=== PATIENT | female | born 1970 | race Caucasian/White ===

== ENCOUNTER 2018-07-20 15:59 | Emergency (ER) | payer OTHER, SELFPAY ==
[2018-07-20 16:03] VITALS: BP 133/100; PULSE 105; RESP 20; TEMP 36.8; O2SAT 100; BMI 25.4
--- NOTE | 2018-07-20 18:09 | ED.HA ---
HPI - Headache General Chief Complaint: Headache Stated Complaint: infection,fever,pain and pressure in head Time Seen by Provider: 07/20/18 16:55 Source: patient and family Mode of arrival: ambulatory Limitations: no limitations History of Present Illness HPI Narrative: 47-year-old female, nonsmoker with extensive, chronic medical history presents with ongoing headache for the past 10 days or so. She denies any fever or chills nor has she had any injury or exposure to ill persons. Patient was initially seen at would be and had at therapies for migraine administered including what sounds like Toradol, Reglan and a steroid. She left the emergency department without any lab work feeling much better. She apparently had a CT which was unremarkable and when her symptoms persisted she followed up with her primary care provider who ordered some antibiotics and steroids for presumed sinusitis given her complaint facial discomfort. She states that she feels largely better but is still not back to her baseline and as a result her primary care provider sent her here for a lumbar puncture. She denies any neck pain has no mental status change, feels largely much better and refuses a lumbar puncture even after discussion of risks and benefits. Initially her headache was worse with bright lights and loud noises and now she states her facial discomfort/fullness is worse when she leans forward or moves her head side to side. She denies any purulent drainage or other respiratory complaints such as runny nose, sore throat or cough MD Complaint: headache Onset (ago): day(s) Onset description: gradual Location: diffuse and facial Severity: mild Quality: aching Relieving factors: nothing Exacerbating factors: other Context: occurred at rest Associated symptoms: photophobia and sensitivity to sound Treatments prior to arrival: migraine medication and other (Decadron, Augmentin) Related Data Home Medications Medication Instructions Recorded Confirmed acetaminophen 07/20/18 amoxicillin-pot clavulanate 1 tab PO BID 07/20/18 07/20/18 buspirone 07/20/18 07/20/18 cyclobenzaprine 07/20/18 07/20/18 duloxetine 07/20/18 07/20/18 esomeprazole magnesium 07/20/18 07/20/18 folic acid 07/20/18 07/20/18 gabapentin 07/20/18 07/20/18 ibuprofen 07/20/18 07/20/18 nifedipine 07/20/18 07/20/18 nitroglycerin [Nitro-Bid] 07/20/18 07/20/18 ondansetron 07/20/18 07/20/18 rosuvastatin [Crestor] 1 tab PO DAILY 07/20/18 07/20/18 sildenafil (antihypertensive) 07/20/18 07/20/18 spironolactone 1 tab PO DAILY 07/20/18 07/20/18 tocilizumab [Actemra] 07/20/18 07/20/18 Allergies Allergy/AdvReac Type Severity Reaction Status Date / Time amlodipine Allergy Verified 07/20/18 21:55 Sulfa (Sulfonamide Allergy Verified 07/20/18 21:55 Antibiotics) sumatriptan [From Imitrex] Allergy Verified 07/20/18 21:55 Review of Systems Review of Systems All systems reviewed & are unremarkable except as noted in HPI and below Constitutional Denies chills, Denies fever(s), Reports headache(s), Denies lethargy and Reports weakness Comments: generalized fatiue Eyes Denies change in vision, Denies eye discharge, Denies irritation and Denies loss of vision ENT Ears, Nose, Mouth, and Throat: Denies change in voice, Reports headache(s), Denies neck pain and Denies sore throat Cardiovascular Denies chest pain, Denies irregular heart rhythm, Denies lightheadedness, Denies palpitations, Denies dyspnea, Denies dyspnea on exertion and Denies orthopnea Respiratory Denies cough, Denies dyspnea, Denies dyspnea on exertion and Denies wheezing Gastrointestinal Gastrointestinal: Denies abdominal pain, Denies change in bowel habits, Denies diarrhea, Denies nausea and Denies vomiting Genitourinary Denies hematuria, Denies flank pain, Denies urinary incontinence and Denies urinary urgency Musculoskeletal Denies neck pain Integumentary/Breasts Denies pruritus, Denies erythema, Denies rash and Denies wounds Neurologic Denies confusion, Reports headache(s), Denies loss of vision and Reports weakness Psychiatric Denies anxiety, Denies confusion, Denies depression, Denies homicidal ideation and Denies suicidal ideation Endocrine Denies palpitations Hematologic/Lymphatic Denies easy bruising Allergic/Immunologic Denies wheezing PFSH Medical History CVA (cerebral vascular accident) (Acute) Chronic anemia (Acute) Rheumatoid arthritis (Acute) Sjogren's disease (Acute) Social History Smoking Status: Never smoker Exam Initial Vital Signs Initial Vital Signs: Vital Signs Temperature 98.3 F 07/20/18 16:03 Pulse Rate 105 H 07/20/18 16:03 Respiratory Rate 20 07/20/18 16:03 Blood Pressure 133/100 H 07/20/18 16:03 Pulse Oximetry 100 07/20/18 16:03 Const General: cooperative and well developed Nutritional Appearance: well nourished Orientation: alert, awake, oriented x3 and not confused HENMT Head: normocephalic and atraumatic Ears: external ears normal and TM's normal bilaterally Nose: external nose normal and No nasal discharge Face and sinus: sinuses nontender, face symmetric, no sinus tenderness and No dry mucous membranes Mouth: oral mucosae normal and moist mucous membranes Teeth and gingiva: dentition normal Throat: tonsils normal and uvula midline Eyes General: appearance normal, both eyes and all related structures Eyelids: eyelids normal Conjunctivae: conjunctivae normal Sclera: sclerae normal Pupils: PERRL EOM: EOM intact bilaterally Neck Neck: normal visual inspection, trachea midline, No lymphadenopathy, No midline deformity and No JVD Lymphatic: No lymphedema Chest Chest: normal inspection of the chest Resp Effort & Inspection: normal respiratory effort, able to speak in complete sentences, no respiratory distress and no use of accessory muscles Auscultation: clear to auscultation bilaterally, no rales, no rhonchi and no wheezes Cardio Rate: regular rate Rhythm: regular rhythm Heart Sounds: no click, no gallops, no murmurs and no rubs Pulses: normal peripheral pulses GI Inspection: non-distended Palpation: soft, no hepatosplenomegaly, No guarding, No pulsatile mass and No tender Auscultation: normal bowel sounds Back/Spine/Pelvis Back: No CVA tenderness Cervical Spine: cervical ROM normal and No pain with cervical ROM Thoracic/Lumbar Spine: thoracic and lumbar spine normal to inspection Skin General: no rashes or lesions noted, No jaundice and No petechiae Neuro General: alert, oriented x3, gait normal and no focal motor deficits Speech: speech normal Other: NIH Stroke Scale 1a. LOC: Patient is alert and keenly responsive (0) 1b. LOC Questions: Patient answers both LOC questions accurately (0) 1c. LOC Commands: Patient performs both tasks correctly (0) 2. Best Gaze: Normal (0) 3. Visual: No visual loss (0) 4. Facial palsy: Normal symmetrical movements (0) 5. Motor arm: No drift (0) 6. Motor leg: No drift (0) 7. Limb ataxia: Absent (0) 8. Sensory: Normal (0) 9. Best language: No aphasia; normal (0) 10. Dysarthria: Normal (0) 11. Extinction and inattention: No abnormality (0) NIHSS: 0 Extrem General: full ROM, no clubbing, cyanosis or edema, no pedal edema and no calf tenderness Psych Appearance: well kempt Mental Status: mental status grossly normal Attitude: cooperative Thought Content: normal and suicidality Judgment: judgment good Course Orders Ordered: ED Orders 07/20/18 18:30 MR head/brain wo con Stat Influenza A and B by PCR Rapid Stat 07/20/18 18:56 Basic Metabolic Panel Stat Complete Blood Count AUTO DIFF Stat Procalcitonin Stat Discontinued Medications Dexamethasone (Decadron) 10 mg IV NOW ONE Stop: 07/20/18 18:30 Last Admin: 07/20/18 18:50 Dose: 10 mg Sodium Chloride (Normal Saline 0.9%) 1,000 mls @ 1,000 mls/hr IV BOLUS ONE Stop: 07/20/18 19:28 Last Infusion: 07/20/18 20:12 Dose: 0 mls/hr Admin: 07/20/18 18:50 Dose: 1,000 mls/hr Lorazepam (Ativan) 0.5 mg IV NOW ONE Stop: 07/20/18 21:10 Last Admin: 07/20/18 21:25 Dose: 0.5 mg Metoclopramide HCl (Reglan) 10 mg IV NOW ONE Stop: 07/20/18 18:30 Last Admin: 07/20/18 18:50 Dose: 10 mg Consultations Consultation #1: Dr. Knapp ([facility] [place] [facility]) accepts patient. [facility] called. Images pushed He has returned our call and states no anticoagulation at this point time Time: 21:00 Vital Signs - 8 hr 07/20/18 16:03 07/20/18 20:43 07/20/18 22:02 Temperature 98.3 F Pulse Rate 105 H 95 H 89 Respiratory Rate 20 16 15 Blood Pressure 133/100 H Blood Pressure [Left Arm] 158/89 H 156/87 H Pulse Oximetry 100 100 100 MDM - Headache Medical Records Attestation: I reviewed the patient's medical records. patient has chronic anemia 6.8-7.8 Lab Data Result diagrams: 07/20/18 18:56 07/20/18 18:56 Lab Results 07/20/18 07/20/18 07/20/18 Range/Units 18:56 18:56 18:56 WBC 5.9 (4.5-11.0) X10^3/uL RBC 3.91 L (4.0-5.2) X10^6/uL Hgb 6.8 L* (12.0-16.0) g/dL Hct 24.5 L (36-46) % MCV 62.5 L (80-100) fL MCH 17.3 L (26-34) PG MCHC 27.6 L (30-36) % RDW 19.2 H (11.6-14.8) % Plt Count 259 (150-400) X10^3/uL Neut % (Auto) 65.0 (50-75) % Lymph % (Auto) 25.0 (25-40) % Door % (Auto) 9.2 (3-14) % Eos % (Auto) 0.2 L (2-4) % Baso % (Auto) 0.6 (0-2) % Neut # (Auto) 3900 (6057-1498) /uL RBC Morphology See below Polychromasia 1+ H Hypochromasia 2+ H Anisocytosis 1+ H Microcytosis 2+ H Ovalocytes 1+ H Sodium 141 (137-145) mmol/L Potassium 3.8 (3.4-5.1) mmol/L Chloride 106 (98-107) mmol/L Carbon Dioxide 26 (22-32) mmol/L BUN 12 (7-17) mg/dL Creatinine 1.00 (0.52-1.04) mg/dL Estimated GFR 60.0 (>60) mL/min BUN/Creatinine Ratio 12.0 (6-22) Glucose 96 (70-100) mg/dL Calcium 9.0 (8.4-10.2) mg/dL Procalcitonin < 0.05 (<0.5) ng/mL Imaging Data MRI - head: Radiologist's impression: [address] [address] Magnetic Resonance Report Signed Patient: Terra Smith MMR#: [id number] : 1970Acct:[id number] Age/Sex: 47 / FDate of Service: 07/20/18 Loc: ED Accession Number: [id number] Procedure: MR head/brain wo con Ordering Provider: Cornelio Moore D.O. PROCEDURE: MR HEAD/BRAIN WO CON INDICATIONS: severe MENDOZA, pain and pressure in head TECHNIQUE: Noncontrast axial T1 spin echo, axial T2 fast spin echo, sagittal and axial FLAIR, coronal T2 fast spin echo, axial gradient echo, axial diffusion and ADC through the brain. COMPARISON: None. FINDINGS: Image quality: Excellent. CSF Spaces: Basal cisterns are patent. No extra-axial fluid collections. Ventricles are normal in size and shape. Brain: No intracranial masses or hemorrhage. Mild T2/FLAIR signal elevation and low gradient echo signal spanning 13 mm within the left superior cerebellum is present. Akins/white matter interface is normal. Brainstem appears normal. Diffusion-weighted images demonstrate no acute ischemic insult. No chronic ischemic insults. Elevated T1/FLAIR signal intensity within the sagittal sinus, left transverse and sigmoid sinus, as well as the left superior internal jugular vein is present. Otherwise normal intravascular flow voids are present. Skull and face: Calvarium has normal marrow signal. Orbits appear normal. Sinuses: Right maxillary sinus retention cyst. Sinuses and mastoids are otherwise clear. IMPRESSION: 1. Cerebral venous thrombosis involving the sagittal, left transverse, left sigmoid, and left internal jugular veins. 2. Mild FLAIR signal elevation and low gradient echo signal within the left cerebellar hemisphere, consistent with a small focus of intraparenchymal hemorrhage with surrounding edema. No midline shift. 3. Findings discussed with Dr. Moore on 07.20.18 at 0840 hrs. Dictated by: Mario Shea M.D. on 07/20/2018 at 20:37 Approved by: Mario Shea M.D. on 07/20/2018 at 20:44 Discharge Plan Departure Patient Disposition: [facility] Clinical Impression: Intraparenchymal hemorrhage of brain, Cerebral venous thrombosis Prescriptions: No Action nifedipine 30 mg tablet extended release 24hr RF: 0 acetaminophen 650 mg suppository RF: 0 spironolactone 25 mg tablet 1 tab PO DAILY RF: 0 ondansetron 8 mg tablet,disintegrating RF: 0 esomeprazole magnesium 40 mg capsule,delayed release(DR/EC) RF: 0 ibuprofen 400 mg tablet RF: 0 gabapentin 300 mg capsule RF: 0 nitroglycerin [Nitro-Bid] 2 % ointment RF: 0 folic acid 1 mg tablet RF: 0 amoxicillin-pot clavulanate 875-125 mg tablet 1 tab PO BID RF: 0 buspirone 15 mg tablet RF: 0 cyclobenzaprine 5 mg tablet RF: 0 rosuvastatin [Crestor] 5 mg tablet 1 tab PO DAILY RF: 0 duloxetine 30 mg capsule,delayed release(DR/EC) RF: 0 sildenafil (antihypertensive) 20 mg tablet RF: 0 tocilizumab [Actemra] 162 mg/0.9 mL syringe RF: 0
--- NOTE | 2018-07-20 18:30 | DI.MRI.S_ITS ---
PROCEDURE: MR HEAD/BRAIN WO CON INDICATIONS: severe MENDOZA, pain and pressure in head TECHNIQUE: Noncontrast axial T1 spin echo, axial T2 fast spin echo, sagittal and axial FLAIR, coronal T2 fast spin echo, axial gradient echo, axial diffusion and ADC through the brain. COMPARISON: None. FINDINGS: Image quality: Excellent. CSF Spaces: Basal cisterns are patent. No extra-axial fluid collections. Ventricles are normal in size and shape. Brain: No intracranial masses or hemorrhage. Mild T2/FLAIR signal elevation and low gradient echo signal spanning 13 mm within the left superior cerebellum is present. Akins/white matter interface is normal. Brainstem appears normal. Diffusion-weighted images demonstrate no acute ischemic insult. No chronic ischemic insults. Elevated T1/FLAIR signal intensity within the sagittal sinus, left transverse and sigmoid sinus, as well as the left superior internal jugular vein is present. Otherwise normal intravascular flow voids are present. Skull and face: Calvarium has normal marrow signal. Orbits appear normal. Sinuses: Right maxillary sinus retention cyst. Sinuses and mastoids are otherwise clear. IMPRESSION: 1. Cerebral venous thrombosis involving the sagittal, left transverse, left sigmoid, and left internal jugular veins. 2. Mild FLAIR signal elevation and low gradient echo signal within the left cerebellar hemisphere, consistent with a small focus of intraparenchymal hemorrhage with surrounding edema. No midline shift. 3. Findings discussed with Dr. Moore on 07.20.18 at 0840 hrs. Dictated by: Mario Shea M.D. on 07/20/2018 at 20:37 Approved by: Mario Shea M.D. on 07/20/2018 at 20:44
[2018-07-20] MEDS: METOCLOPRAMIDE 10 MG/2 ML INJ IV (18:50)
[2018-07-20] MEDS: DEXAMETHASONE 10 MG/ML VIAL IV (18:50)
[2018-07-20] MEDS: SODIUM CHLORIDE 0.9% 1,000 ML 1000 ML IV (18:50)
[2018-07-20 19:18] LABS: Add Manual Diff / Slide Review NO; Hematocrit 24.5 % (36-46); Neutrophils Absolute Auto 3900 /uL (3000-5900); Red Blood Cell Count 3.91 X10^6/uL (4.0-5.2); White Blood Cell Count 5.9 X10^3/uL (4.5-11.0)
[2018-07-20 19:23] LABS: Basophils Percent Auto 0.6 % (0-2); Eosinophils Percent Auto 0.2 % (2-4); Mean Corpuscular HGB Conc 27.6 % (30-36); Mean Corpuscular Hemoglobin 17.3 PG (26-34); Mean Corpuscular Volume 62.5 fL (80-100); Monocytes Percent Auto 9.2 % (3-14); Platelet Count 259 X10^3/uL (150-400); Red Cell Distribution Width 19.2 % (11.6-14.8)
[2018-07-20 19:25] LABS: Hemoglobin 6.8 g/dL (12.0-16.0)
[2018-07-20 19:45] LABS: Blood Urea Nitrogen 12 mg/dL (7-17); Carbon Dioxide 26 mmol/L (22-32); Chloride 106 mmol/L (98-107); Glucose 96 mg/dL (70-100); HEMOLYSIS < 15 (0-50); Potassium 3.8 mmol/L (3.4-5.1); Sodium 141 mmol/L (137-145)
[2018-07-20 19:47] LABS: Anisocytosis 1+; Hypochromasia 2+; Microcytosis 2+; Ovalocytes 1+; Polychromasia 1+
[2018-07-20 20:02] LABS: Procalcitonin < 0.05 ng/mL (<0.5)
--- NOTE | 2018-07-20 20:20 | PC.NURSE ---
provider at bedside pt able to pull up multiple lab results since September. Pt states her hemaglobin is chronically low. provider aware no new orders at this time.
[2018-07-20 20:43] VITALS: BP 158/89; PULSE 95; RESP 16; O2SAT 100
[2018-07-20] MEDS: LORazepam 2 MG/ML SYRINGE 0.5 MG IV (21:25)
[2018-07-20 22:02] VITALS: BP 156/87; PULSE 89; RESP 15; O2SAT 100
[2018-07-20 22:16] VITALS: BP 156/87; PULSE 108; RESP 20; TEMP 36.8; O2SAT 97
== END 2018-07-20 22:17 | disposition short-term general hospital (02) ==
PROVIDERS: Emergency Provider Emergency Medicine
DX: I61.9 Nontraumatic intracerebral hemorrhage, unspecified (principal); G08 Intracranial and intraspinal phlebitis and thrombophlebitis
CPT/HCPCS: 36591; 70551; 80048; 84145; 85025; 96361; 96374; 96375; 99283; 99285; J1100; J2060; J2765

== ENCOUNTER 2020-02-22 12:44 | Emergency (ER) | payer OTHER, SELFPAY ==
[2020-02-22] VITALS (8 sets, daily range): BP systolic 139–194; BP diastolic 81–118; PULSE 79–118; RESP 16–21; TEMP 37.4; O2SAT 97–100; BMI 28.3
--- NOTE | 2020-02-22 12:59 | ED_ITS ---
HPI - Neuro Symptoms/Deficit General Chief Complaint: Neuro Symptoms/Deficit Stated Complaint: Hx of blood clots and strokes, lot of head pain Time Seen by Provider: 02/22/20 12:47 Source: patient Mode of arrival: Ambulatory Limitations: no limitations History of Present Illness HPI Narrative: 49-year-old female here for evaluation of approximately 10 days of a left-sided posterior headache. She states that feels very similar to when she was diagnosed with a ?blood clot? in her brain. 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 Most recent 1 approximately 1.5 years ago. She is not currently on any anticoagulation. She states that she should be on anticoagulation but does not take it because ?I am too overwhelmed ?with the rest of her medical issues. Has not tried anything for symptoms prior to arrival Related Data Home Medications Medication Instructions Recorded Confirmed acetaminophen 07/20/18 amoxicillin-pot clavulanate 1 tab PO BID 07/20/18 07/20/18 buspirone 07/20/18 07/20/18 cyclobenzaprine 07/20/18 07/20/18 duloxetine 07/20/18 07/20/18 esomeprazole magnesium 07/20/18 07/20/18 folic acid 07/20/18 07/20/18 gabapentin 07/20/18 07/20/18 ibuprofen 07/20/18 07/20/18 nifedipine 07/20/18 07/20/18 nitroglycerin [Nitro-Bid] 07/20/18 07/20/18 ondansetron 07/20/18 07/20/18 rosuvastatin [Crestor] 1 tab PO DAILY 07/20/18 07/20/18 sildenafil (pulm.hypertension) 07/20/18 07/20/18 spironolactone 1 tab PO DAILY 07/20/18 07/20/18 tocilizumab [Actemra] 07/20/18 07/20/18 Allergies Allergy/AdvReac Type Severity Reaction Status Date / Time amlodipine Allergy Verified 02/22/20 12:57 Sulfa (Sulfonamide Allergy Verified 02/22/20 12:57 Antibiotics) sumatriptan [From Imitrex] Allergy Verified 02/22/20 12:57 Review of Systems Constitutional Constitutional: Denies fever(s) and Reports headache(s) Eyes Eyes: Reports photophobia ENT Ears, Nose, Mouth, and Throat: Denies vertigo, Denies dizziness, Reports hea dache(s), Denies neck mass and Denies sore throat Cardiovascular Cardiovascular: Denies chest pain and Denies dyspnea Respiratory Respiratory: Denies dyspnea Gastrointestinal Gastrointestinal: Denies abdominal pain, Denies nausea and Denies vomiting Genitourinary Genitourinary: Denies dysuria Musculoskeletal Musculoskeletal: Denies myalgias and Denies arthralgias Integumentary/Breasts Skin/Breast: Denies lesions and Denies rash Neurologic Neurologic: Denies behavioral changes, Denies vertigo, Denies dizziness and Reports headache(s) Psychiatric Psychiatric: Denies behavioral changes Hematologic/Lymphatic Hematologic/Lymphatic: Denies easy bleeding and Denies easy bruising Patient History Medical History Chronic anemia (Acute) CVA (cerebral vascular accident) (Acute) Rheumatoid arthritis (Acute) Sjogren's disease (Acute) Social History Smoking Status: Never smoker Smoking Status: Never smoker Substance Use Type: does not use Exam Initial Vital Signs Initial Vital Signs: Vital Signs Temperature 99.3 F 02/22/20 12:53 Pulse Rate 118 H 02/22/20 12:53 Respiratory Rate 18 02/22/20 12:53 Blood Pressure 192/118 H 02/22/20 12:53 Pulse Oximetry 100 02/22/20 12:53 Const General: cooperative, healthy appearing, comfortable, well developed and well groomed Limitations: mental status not altered [facility] Head: normal to inspection and normocephalic Face and sinus: normal facial exam Mouth: oral mucosae normal Eyes Pupils: PERRL EOM: EOM intact bilaterally Resp Effort & Inspection: normal respiratory effort Auscultation: clear to auscultation bilaterally Cardio Rate: regular rate Rhythm: regular rhythm GI Inspection: non-distended Palpation: soft, No firm and No tender Skin Lesions: no lesions Rashes: no rashes Neuro General: alert, awake and oriented x3 Cranial Nerves: CN's II-XI intact bilaterally Cognition: normal cognition Speech: speech normal Motor: muscle tone normal throughout Sensory Exam: no sensory deficits noted Extrem General: normal to inspection and capillary refill normal Psych Appearance: grossly normal and well kempt Scores [employer] coma scale eye opening: Spontaneous [employer] coma scale verbal response: Orientated [employer] coma scale motor response: Obey commands [employer] coma scale total score: 15 Course Orders Ordered: ED Orders 02/22/20 12:58 EKG-12 Lead Stat 02/22/20 13:01 Complete Blood Count AUTO DIFF Stat Comprehensive Metabolic Panel Stat Lipase Stat Partial Thromboplastin Time Stat Prothrombin Time INR Stat 02/22/20 13:46 CT head/brain wo con Stat 02/22/20 13:57 MR stroke Stat Discontinued Medications Acetaminophen (Tylenol) 975 mg PO NOW ONE Stop: 02/22/20 16:40 Last Admin: 02/22/20 17:43 Dose: 975 mg Documented by: DIEGO Diphenhydramine HCl (Benadryl) 25 mg IV NOW ONE Stop: 02/22/20 16:49 Last Admin: 02/22/20 17:43 Dose: 25 mg Documented by: DIEGO Ketorolac Tromethamine (Toradol) 30 mg IV NOW ONE Stop: 02/22/20 16:49 Last Admin: 02/22/20 17:43 Dose: 30 mg Documented by: DIEGO Metoclopramide HCl (Reglan) 10 mg IV NOW ONE Stop: 02/22/20 16:49 Last Admin: 02/22/20 17:43 Dose: 10 mg Documented by: DIEGO Vital Signs Vital signs: Vital Signs - 8 hr 02/22/20 12:53 02/22/20 14:11 02/22/20 15:11 Temperature 99.3 F Pulse Rate 118 H 98 H 99 H Respiratory Rate 18 18 20 Blood Pressure 192/118 H Blood Pressure [Left Arm] 161/100 H 158/113 H Pulse Oximetry 100 99 97 02/22/20 16:00 02/22/20 16:30 02/22/20 17:00 Temperature Pulse Rate 96 H 102 H 99 H Respiratory Rate 16 18 21 Blood Pressure Blood Pressure [Left Arm] 140/81 194/98 H 165/85 H Pulse Oximetry 100 98 98 02/22/20 17:30 02/22/20 18:09 Temperature Pulse Rate 95 H 79 Respiratory Rate 21 Blood Pressure 139/87 Blood Pressure [Left Arm] 158/84 H Pulse Oximetry 98 99 MDM - Neuro Symptoms/Deficit Lab Data Attestation: I reviewed the patient's lab results. Result diagrams: 02/22/20 13:01 02/22/20 13:01 Labs: Lab Results 02/22/20 02/22/20 02/22/20 Range/Units 13:01 13: 13:01 WBC 9.1 (4.5-11.0) X10^3/uL RBC 4.69 (4.0-5.2) X10^6/uL Hgb 14.2 (12.0-16.0) g/dL Hct 42.2 (36-46) % MCV 90.0 (80-100) fL MCH 30.2 (26-34) PG MCHC 33.6 (30-36) % RDW 14.8 (11.6-14.8) % Plt Count 343 (150-400) X10^3/uL Neut % (Auto) 88.7 H (50-75) % Lymph % (Auto) 6.3 L (25-40) % Callahan % (Auto) 4.3 (3-14) % Eos % (Auto) 0.1 L (2-4) % Baso % (Auto) 0.6 (0-2) % Neut # (Auto) 8100 H (8111-7631) /uL Lymph # (Auto) 600 L (9940-9719) /uL Callahan # (Auto) 400 (0-900) /uL Eos # (Auto) 0 (0-450) /uL Baso # (Auto) 100 (0-100) /uL PT 12.2 (10.1-12.7) SECONDS INR 1.1 (0.9-1.3) APTT 44 H (26.4-36.2) SECONDS Sodium 137 (137-145) mmol/L Potassium 4.1 (3.4-5.1) mmol/L Chloride 104 (98-107) mmol/L Carbon Dioxide 25 (22-32) mmol/L BUN 17 (7-17) mg/dL Creatinine 0.97 (0.52-1.04) mg/dL Estimated GFR > 60.0 (>60) mL/min BUN/Creatinine Ratio 17.5 (6-22) Glucose 123 H (70-100) mg/dL Calcium 9.5 (8.4-10.2) mg/dL Total Bilirubin 0.3 (0.2-1.3) mg/dL AST 28 (14-36) IU/L ALT 40 H (<35) IU/L Alkaline Phosphatase 94 (38-126) U/L Total Protein 8.6 H (6.3-8.2) g/dL Albumin 4.3 (3.5-5.0) g/dL Globulin 4.3 H (1.7-4.1) g/dL Albumin/Globulin Ratio 1.0 (1.0-2.8) Lipase 233 (23-300) U/L Imaging Data CT scan - head: Radiologist's Impression: [address] [address] [address] Scan Report Signed Patient: Terra Smith MMR#: [id number] : 1970Acct:[id number] Age/Sex: 49 / FDate of Service: 02/22/20 Loc: ED Accession Number: [id number] Procedure: CT head/brain wo con Ordering Provider: Freddy Draper D.O. PROCEDURE: CT HEAD/BRAIN WO CON INDICATIONS: History of ICH, with current headache TECHNIQUE: Noncontrast 4.5 mm thick angled axial sections acquired from the foramen magnum to the vertex, with coronal and sagittal reformats. For radiation dose reduction, the following was used: automated exposure control, adjustment of mA and/or kV according to patient size. COMPARISON: None. FINDINGS: Image quality: Excellent. CSF spaces: Basal cisterns are patent. No extra-axial fluid collections. Ventricles are normal in size and shape. Brain: No midline shift. No intracranial masses or hemorrhage. Akins-white matter interface is normal. Mild generalized volume loss with a bifrontal predominanc e, questionably greater than expected for patient age. Skull and face: Calvarium and visualized facial bones are intact, without suspicious lesions. Sinuses: Visualized sinuses and mastoids are clear. IMPRESSION: 1. Mild diffuse volume loss, questionably greater than expected for patient age. 2. Otherwise unremarkable head CT. No evidence of acute stroke, hemorrhage, or mass. Dictated by: Ned Gtz M.D. on 02/22/2020 at 13:48 Approved by: Ned Gtz M.D. on 02/22/2020 at 13:51 MRI: Radiologist's Impression: [address] [address] Magnetic Resonance Report Signed Patient: Terra Smith [facility]#: [id number] : 1970Acct:[id number] Age/Sex: 49 / FDate of Service: 02/22/20 Loc: ED Accession Number: [id number] Procedure: MR stroke Ordering Provider: Freddy Draper D.O. PROCEDURE: MR STROKE Pre- and post-contrast brain MRI, non-contrast brain MR angiogram, pre- and postcontrast neck MR angiogram INDICATIONS: Hx of ICH and venous thrombosis TECHNIQUE: Brain: Noncontrast axial T1 spin echo, axial T2 fast spin echo, sagittal and axial FLAIR, coronal T2 fast spin echo, axial gradient echo, axial diffusion and ADC through the brain. After the administration of contrast, axial 3D VIBE of the cranial vasculature and brain. Brain MRA: Non-contrast 3-D time of flight MR angiogram, with multiple waoronv-kmldeyboy-ixbaqhlkwy (MIP) reformats performed. Neck MRA: Axial and sagittal TruFISP through the neck. Coronal dynamic MR angiogram during administration of contrast in the arterial and venous phases, with 3-dimenstional lcqbjxl-khksgcbgm-pojatamhdh (MIP) reformats constructed from subtraction images. COMPARISON: [facility], MR, MR HEAD/BRAIN WO CON, 07/20/2018, 19:47. [facility], CT, CT HEAD/BRAIN WO CON, 02/22/2020, 13:13. FINDINGS: Image quality: Excellent. BRAIN: CSF spaces: Ventricles are normal in size and shape. Basal cisterns are patent. No extra-axial fluid collections. Brain: No intracranial bleeds or mass effects. Akins-white matter interface is normal. Very minimal tiny foci of increased T2 signal noted in deep white matter structures, within normal limits for patient age. Diffusion weighted images show no acute ischemic insults. Brainstem appears normal. Normal intravascular flow voids are present. No abnormal intracranial enhancement. Previously, in 2018 study, there was extensive acute venous sinus thrombosis. There is minimal residual nonocclusive thrombus focally in the superior sagittal sinus. There may be mild residual or recurrent thrombus present in the left sigmoid sinus. No occlusive venous sinus thrombus is identified. Interestingly, no hemosiderin deposition is identified. Skull and face: Calvarial marrow signal is normal. Orbits appear normal. Sinuses: Sinuses and mastoids are clear. BRAIN MR ANGIOGRAM: Anterior circulation: Intracranial internal carotid arteries are normal in size and enhancement. Normal variant anatomy in which there is atresia of the A1 segment of the right anterior cerebral artery. The flow within the paired anterior cerebral arteries is normal and symmetric. The flow within the middle cerebral arteries is normal and symmetric. The anterior communicating artery is seen. No stenoses, occlusions, or aneurysms. Posterior circulation: The visualized portions of the vertebral arteries demonstrate normal caliber, and join to form a normal appearing basilar artery. The flow within the posterior cerebral arteries is normal and symmetric. No stenoses, occlusions, or aneurysms. NECK MR ANGIOGRAM: Carotids: Great vessels demonstrate a bovine arch anatomy as they arise from the aortic arch. The origins of the common carotid arteries appear patent. The calibers and courses of both common carotid arteries are normal. The bifurcation regions appear normal bilaterally. The internal carotid arteries demonstrate normal course and caliber. Posterior circulation: The origins of the vertebral arteries appear patent. More superior portions of both vertebral arteries demonstrate normal course and caliber, and join to form a normal appearing basilar artery. Miscellaneous: Subclavian arteries appear patent. Pre-contrast images through the neck show no soft tissue abnormalities. IMPRESSION: BRAIN MRI: 1. No evidence of acute stroke, hemorrhage, or mass. Normal appearing brain parenchyma for patient age. No evidence of hemosiderin deposition. 2. Very mild residual or recurrent nonocclusive venous sinus thrombosis, involving the superior sagittal sinus and possibly the left sigmoid sinus. BRAIN MR ANGIOGRAM: There is focused on the arterial tree. No stenosis, occlusio n, aneurysm, or filling defect. NECK MR ANGIOGRAM: Unremarkable Dictated by: Ned Gtz M.D. on 02/22/2020 at 16:26 Approved by: Ned Gtz M.D. on 02/22/2020 at 16:39 ECG Data Attestation: I personally reviewed and interpreted this ECG as follows: Prior ECG tracings: not available for review Interpretation: Sinus tachycardia Ventricular rate 109 Normal axis Normal QRS Normal QTC No ST T wave changes MDM Narrative Medical decision making narrative: Afebrile. Low suspicion for meningitis. CT of the head unremarkable. MRI of the head shows no acute findings. Low suspicion for CVA. Low suspicion for TIA. Low suspicion for intracranial hemorrhage. Low suspicion for tumor. Patient reported improvement of her symptoms after medications. Had a long discussion with her stating that she should talk with her primary doctor about whether not she should be taking the Lovenox given her history of cerebral thrombosis. Patient was given return precautions and follow-up instructions. She expressed understanding and agreement. Discharge Plan Departure Patient Disposition: Home Clinical Impression: Headache Qualifiers: Headache type: unspecified Headache chronicity pattern: unspecified pattern Intractability: not intractable Qualified Code(s): R51 - Headache Discharge Date/Time: 02/22/20 18:10 Instructions: DI for Headache Activity Restrictions/Additional Instructions: Continue all of your medications as directed. Contact your primary provider for follow-up. Return to the emergency department for any new or worsening symptoms Prescriptions: No Action nifedipine 30 mg tablet extended release 24hr RF: 0 acetaminophen 650 mg suppository RF: 0 spironolactone 25 mg tablet 1 tab PO DAILY RF: 0 ondansetron 8 mg tablet,disintegrating RF: 0 esomeprazole magnesium 40 mg capsule,delayed release(DR/EC) RF: 0 ibuprofen 400 mg tablet RF: 0 gabapentin 300 mg capsule RF: 0 nitroglycerin [Nitro-Bid] 2 % ointment RF: 0 folic acid 1 mg tablet RF: 0 amoxicillin-pot clavulanate 875-125 mg tablet 1 tab PO BID RF: 0 buspirone 15 mg tablet RF: 0 cyclobenzaprine 5 mg tablet RF: 0 rosuvastatin [Crestor] 5 mg tablet 1 tab PO DAILY RF: 0 duloxetine 30 mg capsule,delayed release(DR/EC) RF: 0 sildenafil (pulm.hypertension) 20 mg tablet RF: 0 tocilizumab [Actemra] 162 mg/0.9 mL syringe RF: 0 Referrals: Tatiana Tomas [Primary Care Provider] -
[2020-02-22 13:09] LABS: Add Manual Diff / Slide Review NO; Basophils Absolute Auto 100 /uL (0-100); Basophils Percent Auto 0.6 % (0-2); Eosinophils Absolute Auto 0 /uL (0-450); Eosinophils Percent Auto 0.1 % (2-4); Hematocrit 42.2 % (36-46); Hemoglobin 14.2 g/dL (12.0-16.0); Lymphocytes Absolute Auto 600 /uL (1100-4500); Lymphocytes Percent Auto 6.3 % (25-40); Mean Corpuscular HGB Conc 33.6 % (30-36); Mean Corpuscular Hemoglobin 30.2 PG (26-34); Monocytes Absolute Auto 400 /uL (0-900); Monocytes Percent Auto 4.3 % (3-14); Neutrophils Absolute Auto 8100 /uL (1500-7000); Neutrophils Percent Auto 88.7 % (50-75); Platelet Count 343 X10^3/uL (150-400); Red Blood Cell Count 4.69 X10^6/uL (4.0-5.2); Red Cell Distribution Width 14.8 % (11.6-14.8); White Blood Cell Count 9.1 X10^3/uL (4.5-11.0)
[2020-02-22 13:18] LABS: INR 1.1 (0.9-1.3); Prothrombin Time 12.2 SECONDS (10.1-12.7)
[2020-02-22 13:20] LABS: PTT Partial Thromboplastin Tim 44 SECONDS (26.4-36.2)
[2020-02-22 13:23] LABS: Alanine Aminotransferase 40 IU/L (<35); Albumin 4.3 g/dL (3.5-5.0); Alkaline Phosphatase 94 U/L (38-126); Aspartate Aminotransferase 28 IU/L (14-36); BUN Creatinine Ratio 17.5 (6-22); Bilirubin Total 0.3 mg/dL (0.2-1.3); Blood Urea Nitrogen 17 mg/dL (7-17); Calcium 9.5 mg/dL (8.4-10.2); Carbon Dioxide 25 mmol/L (22-32); Chloride 104 mmol/L (98-107); Estimated Glomerular Filt Rate > 60.0 mL/min (>60); Globulin 4.3 g/dL (1.7-4.1); Glucose 123 mg/dL (70-100); HEMOLYSIS < 15 (0-50); Lipase 233 U/L (23-300); Potassium 4.1 mmol/L (3.4-5.1); Sodium 137 mmol/L (137-145); Total Protein 8.6 g/dL (6.3-8.2)
--- NOTE | 2020-02-22 13:46 | DI.CT.S_ITS ---
PROCEDURE: CT HEAD/BRAIN WO CON INDICATIONS: History of ICH, with current headache TECHNIQUE: Noncontrast 4.5 mm thick angled axial sections acquired from the foramen magnum to the vertex, with coronal and sagittal reformats. For radiation dose reduction, the following was used: automated exposure control, adjustment of mA and/or kV according to patient size. COMPARISON: None. FINDINGS: Image quality: Excellent. CSF spaces: Basal cisterns are patent. No extra-axial fluid collections. Ventricles are normal in size and shape. Brain: No midline shift. No intracranial masses or hemorrhage. Akins-white matter interface is normal. Mild generalized volume loss with a bifrontal predominance, questionably greater than expected for patient age. Skull and face: Calvarium and visualized facial bones are intact, without suspicious lesions. Sinuses: Visualized sinuses and mastoids are clear. IMPRESSION: 1. Mild diffuse volume loss, questionably greater than expected for patient age. 2. Otherwise unremarkable head CT. No evidence of acute stroke, hemorrhage, or mass. Dictated by: Ned Gtz M.D. on 02/22/2020 at 13:48 Approved by: Ned Gtz M.D. on 02/22/2020 at 13:51
--- NOTE | 2020-02-22 13:57 | DI.MRI.S_ITS ---
PROCEDURE: MR STROKE Pre- and post-contrast brain MRI, non-contrast brain MR angiogram, pre- and postcontrast neck MR angiogram INDICATIONS: Hx of ICH and venous thrombosis TECHNIQUE: Brain: Noncontrast axial T1 spin echo, axial T2 fast spin echo, sagittal and axial FLAIR, coronal T2 fast spin echo, axial gradient echo, axial diffusion and ADC through the brain. After the administration of contrast, axial 3D VIBE of the cranial vasculature and brain. Brain MRA: Non-contrast 3-D time of flight MR angiogram, with multiple jdkhxmz-blhbaphho-lkduvqlnmp (MIP) reformats performed. Neck MRA: Axial and sagittal TruFISP through the neck. Coronal dynamic MR angiogram during administration of contrast in the arterial and venous phases, with 3-dimenstional vtcarkl-hafueaovx-jkvwldhzdz (MIP) reformats constructed from subtraction images. COMPARISON: [facility], MR, MR HEAD/BRAIN WO CON, 07/20/2018, 19:47. [facility], CT, CT HEAD/BRAIN WO CON, 02/22/2020, 13:13. FINDINGS: Image quality: Excellent. BRAIN: CSF spaces: Ventricles are normal in size and shape. Basal cisterns are patent. No extra-axial fluid collections. Brain: No intracranial bleeds or mass effects. Akins-white matter interface is normal. Very minimal tiny foci of increased T2 signal noted in deep white matter structures, within normal limits for patient age. Diffusion weighted images show no acute ischemic insults. Brainstem appears normal. Normal intravascular flow voids are present. No abnormal intracranial enhancement. Previously, in 2018 study, there was extensive acute venous sinus thrombosis. There is minimal residual nonocclusive thrombus focally in the superior sagittal sinus. There may be mild residual or recurrent thrombus present in the left sigmoid sinus. No occlusive venous sinus thrombus is identified. Interestingly, no hemosiderin deposition is identified. Skull and face: Calvarial marrow signal is normal. Orbits appear normal. Sinuses: Sinuses and mastoids are clear. BRAIN MR ANGIOGRAM: Anterior circulation: Intracranial internal carotid arteries are normal in size and enhancement. Normal variant anatomy in which there is atresia of the A1 segment of the right anterior cerebral artery. The flow within the paired anterior cerebral arteries is normal and symmetric. The flow within the middle cerebral arteries is normal and symmetric. The anterior communicating artery is seen. No stenoses, occlusions, or aneurysms. Posterior circulation: The visualized portions of the vertebral arteries demonstrate normal caliber, and join to form a normal appearing basilar artery. The flow within the posterior cerebral arteries is normal and symmetric. No stenoses, occlusions, or aneurysms. NECK MR ANGIOGRAM: Carotids: Great vessels demonstrate a bovine arch anatomy as they arise from the aortic arch. The origins of the common carotid arteries appear patent. The calibers and courses of both common carotid arteries are normal. The bifurcation regions appear normal bilaterally. The internal carotid arteries demonstrate normal course and caliber. Posterior circulation: The origins of the vertebral arteries appear patent. More superior portions of both vertebral arteries demonstrate normal course and caliber, and join to form a normal appearing basilar artery. Miscellaneous: Subclavian arteries appear patent. Pre-contrast images through the neck show no soft tissue abnormalities. IMPRESSION: BRAIN MRI: 1. No evidence of acute stroke, hemorrhage, or mass. Normal appearing brain parenchyma for patient age. No evidence of hemosiderin deposition. 2. Very mild residual or recurrent nonocclusive venous sinus thrombosis, involving the superior sagittal sinus and possibly the left sigmoid sinus. BRAIN MR ANGIOGRAM: There is focused on the arterial tree. No stenosis, occlusion, aneurysm, or filling defect. NECK MR ANGIOGRAM: Unremarkable Dictated by: Ned Gtz M.D. on 02/22/2020 at 16:26 Approved by: Ned Gtz M.D. on 02/22/2020 at 16:39
[2020-02-22] MEDS: METOCLOPRAMIDE 10 MG/2 ML INJ IV (17:43)
[2020-02-22] MEDS: ACETAMINOPHEN 325 MG TABLET 975 MG PO (17:43)
[2020-02-22] MEDS: KETOROLAC 60 MG/2 ML VIAL 30 MG IV (17:43)
[2020-02-22] MEDS: diphenhydrAMINE 50 MG/ML VIAL 25 MG IV (17:43)
== END 2020-02-22 18:10 | disposition home or self-care (01) ==
PROVIDERS: Emergency Provider Emergency Medicine; PCP Internal Medicine
DX: R51 Headache (principal); Z86.718 Personal history of other venous thrombosis and embolism; R07.9 Chest pain, unspecified
CPT/HCPCS: 36415; 70450; 70548; 70553; 80053; 83690; 85025; 85610; 85730; 93005; 96374; 96375; 99285; A9579; J1200; J1885; J2765

== ENCOUNTER 2021-08-05 15:54 | Emergency (ER) | payer OTHER, SELFPAY ==
[2021-08-05 15:57] VITALS: BP 143/99; PULSE 95; RESP 14; TEMP 36.7; O2SAT 97; BMI 30.1
--- NOTE | 2021-08-05 17:02 | PC.NURSE ---
Pt is having R eye pain and loss of vision since 10pm last night. Assisted PA with tonometer for eye pressures which were elevated at 28 in the R eye and 25 in L eye. Bedside US was obtained to r/o retinal detachment and vitreous hemorrhage. pt tolerated all procedures well. awaiting further orders.
[2021-08-05] MEDS: FLUORESCEIN 1 MG STRIP EYE-BOTH (17:09)
[2021-08-05] MEDS: PROPARACAINE 0.5% OPHTH SOL 1 DROPS EYE-BOTH (17:10)
--- NOTE | 2021-08-05 17:26 | ED_ITS ---
HPI - Eye Problem <Josette Skaggs PA-C - Last Filed: 08/05/21 19:21> General Chief complaint: Eye Problems Stated complaint: unable to see out of right eye Time Seen by Provider: 08/05/21 16:09 Source: patient Mode of arrival: Ambulatory Limitations: no limitations History of Present Illness HPI Narrative: 50-year-old female with no reported past medical history presents to the ED with 2 days of right eye vision deficits, flashing lights, eye pain. Patient states that her symptoms started last night at 10:00 p.m. with flashes of light in her right eye, along with some blurry vision and right eye pain. This morning patient reports that she continue to have right-sided eye pain, along with photophobia as well as worsening vision in the right eye. Patient describes the vision in her right eye as a circular area of black in the middle. Patient endorses a slight headache. Patient denies any trauma to the eye or head or face. Patient denies fever, chills, nasal congestion, chest pain, shortness of breath, cough, nausea, vomiting, lightheadedness, dizziness, syncope. Patient denies contact lens use. Patient uses glasses for reading. Related Data Home Medications Medication Instructions Recorded Confirmed acetaminophen 650 mg rectal 07/20/18 suppository amoxicillin 875 mg-potassium 1 tab PO BID 07/20/18 07/20/18 clavulanate 125 mg tablet buspirone 15 mg tablet 07/20/18 07/20/18 cyclobenzaprine 5 mg tablet 07/20/18 07/20/18 duloxetine 30 mg capsule,delayed 07/20/18 07/20/18 release esomeprazole magnesium 40 mg 07/20/18 07/20/18 capsule,delayed release folic acid 1 mg tablet 07/20/18 07/20/18 gabapentin 300 mg capsule 07/20/18 07/20/18 ibuprofen 400 mg tablet 07/20/18 07/20/18 nifedipine 30 mg tablet,extended 07/20/18 07/20/18 release 24 hr nitroglycerin 2 % transdermal 07/20/18 07/20/18 ointment ondansetron 8 mg disintegrating 07/20/18 07/20/18 tablet rosuvastatin 5 mg tablet 1 tab PO DAILY 07/20/18 07/20/18 sildenafil (pulm.hypertension) 20 07/20/18 07/20/18 mg tablet spironolactone 25 mg tablet 1 tab PO DAILY 07/20/18 07/20/18 tocilizumab 162 mg/0.9 mL 07/20/18 07/20/18 subcutaneous syringe Allergies Allergy/AdvReac Type Severity Reaction Status Date / Time amlodipine Allergy Verified 08/05/21 16:03 Sulfa (Sulfonamide Allergy Verified 08/05/21 16:03 Antibiotics) sumatriptan [From Imitrex] Allergy Verified 08/05/21 16:03 Review of Systems <Josette Skaggs PA-C - Last Filed: 08/05/21 19:21> Constitutional Constitutional: Denies chills, Denies fatigue, Denies fever(s), Denies frequent falls, Denies lethargy and Denies weakness Eyes Eyes: Reports blind spots, Reports blurry vision, Reports change in vision, Denies eye discharge, Denies irritation, Denies loss of vision, Reports seeing flashes and Reports photophobia ENT Ears, Nose, Mouth, and Throat: Denies change in voice, Denies dizziness, Denies neck pain, Denies sore throat and Denies throat swelling Cardiovascular Cardiovascular: Denies chest pain, Denies irregular heart rhythm, Denies lightheadedness, Denies palpitations, Denies dyspnea, Denies dyspnea on exertion and Denies orthopnea Respiratory Respiratory: Denies cough, Denies dyspnea, Denies dyspnea on exertion and Denies wheezing Gastrointestinal Gastrointestinal: Denies abdominal pain, Denies change in bowel habits, Denies diarrhea, Denies nausea and Denies vomiting Musculoskeletal Musculoskeletal: Denies neck pain and Denies numbness Integumentary/Breasts Skin/Breast: Denies pruritus, Denies erythema, Denies rash and Denies wounds Neurologic Neurologic: Denies behavioral changes, Denies confusion, Denies dizziness, Denies frequent falls, Denies loss of vision, Denies numbness and Denies weakness Psychiatric Psychiatric: Denies anxiety, Denies behavioral changes, Denies confusion, Denies depression, Denies homicidal ideation and Denies suicidal ideation Endocrine Endocrine: Denies fatigue, Denies flushing and Denies palpitations Hematologic/Lymphatic Hematologic/Lymphatic: Denies easy bruising Allergic/Immunologic Allergic/Immunologic: Denies urticaria, Denies throat swelling and Denies wheezing Patient History <Josette Skaggs PA-C - Last Filed: 08/05/21 19:21> Medical History (Updated 08/05/21 @ 20:13 by Josette Skaggs PA-C) Chronic anemia CVA (cerebral vascular accident) Rheumatoid arthritis Sjogren's disease Social History Smoking Status: Never smoker Smoking Status: Never smoker alcohol intake frequency: holidays/special occasions only Substance Use Type: does not use Exam <Josette Skaggs PA-C - Last Filed: 08/05/21 19:21> Initial Vital Signs Initial Vital Signs: Vital Signs Temperature 98.0 F 08/05/21 15:57 Pulse Rate 95 H 08/05/21 15:57 Respiratory Rate 14 08/05/21 15:57 Blood Pressure 143/99 H 08/05/21 15:57 Pulse Oximetry 97 08/05/21 15:57 Const General: cooperative HENMT Head: normocephalic and atraumatic Ears: external ears normal and TM's normal bilaterally Nose: external nose normal and No nasal discharge Face and sinus: sinuses nontender, face symmetric, no sinus tenderness and No dry mucous membranes Mouth: oral mucosae normal and moist mucous membranes Teeth and gingiva: dentition normal Throat: tonsils normal and uvula midline Eyes General: appearance normal, both eyes and all related structures Eyelids: eyelids normal Conjunctivae: abnormal conjunctivae (Mild conjunctival injection) Sclera: sclerae normal Cornea: corneas normal and fluorescein used Pupils: PERRL EOM: EOM intact bilaterally Other: Snellen exam is OS 20/25, OD not measurable. Patient states she cannot really see or [place] what the object is in front of her right eye. Patient states she sees circular black area in the middle of her visual field from the right eye. IOP is 25 OS, 28 OD. Neck Neck: normal visual inspection, trachea midline, No lymphadenopathy, No midline deformity and No JVD Lymphatic: No lymphedema Chest Chest: normal inspection of the chest Resp Effort & Inspection: normal respiratory effort, able to speak in complete sentences, no respiratory distress and no use of accessory muscles Auscultation: clear to auscultation bilaterally, no rales, no rhonchi and no wheezes Cardio Rate: regular rate Rhythm: regular rhythm Heart Sounds: no click, no gallops, no murmurs and no rubs Pulses: normal peripheral pulses GI Inspection: non-distended Palpation: soft, no hepatosplenomegaly, No guarding, No pulsatile mass and No tender Auscultation: normal bowel sounds Back/Spine/Pelvis Back: No CVA tenderness Cervical Spine: cervical ROM normal and No pain with cervical ROM Thoracic/Lumbar Spine: thoracic and lumbar spine normal to inspection Skin General: no rashes or lesions noted, No jaundice and No petechiae Neuro General: patient alert, patient oriented x3, gait normal and no focal motor deficits Speech: speech normal Extrem General: full ROM, no clubbing, cyanosis or edema, no pedal edema and no calf tenderness Psych Appearance: well kempt Mental Status: mental status grossly normal Attitude: cooperative Thought Content: normal and suicidality Judgment: judgment good <Cornelio Moore DO - Last Filed: 08/08/21 08:44> Initial Vital Signs Initial Vital Signs: Vital Signs Temperature 98.0 F 08/05/21 15:57 Pulse Rate 95 H 08/05/21 15:57 Respiratory Rate 14 08/05/21 15:57 Blood Pressure 143/99 H 08/05/21 15:57 Pulse Oximetry 97 08/05/21 15:57 Course <Josette Skaggs PA-C - Last Filed: 08/05/21 19:21> Course Course Narrative: IOP OS 25, OD 28. Snellen OS 20/25, OD unmeasurable. Consult placed to ophthalmology at [facility]. They will call back. Repeat IOP unchanged. Timolol, brimonidine applied to each eye. Dr. NARAYANAN from [facility] ophthalmology has been consulted over the phone, he will accept the patient. No more meds advised for the patient. Patient to be transferred to [place] [facility] via BLS. Counseled patient on the disposition, patient verbalized understanding Orders Ordered: Discontinued Medications Brimonidine Tartrate (Brimonidine 0.2% Ophth 5 Ml) 1 drops EYE-BOTH NOW ONE Stop: 08/05/21 18:23 Last Admin: 08/05/21 18:41 Dose: 1 drops Documented by: JERMAN Fluorescein Sodium (Fluorescein 1 Mg Strip) 1 mg EYE-BOTH NOW ONE Stop: 08/05/21 16:43 Last Admin: 08/05/21 17:09 Dose: 1 mg Documented by: JERMAN Fluorescein Sodium (Fluorescein 1 Mg Strip) 1 mg EYE-RIGHT NOW ONE Stop: 08/05/21 16:42 Last Admin: 08/05/21 17:10 Dose: Not Given Documented by: JERMAN Proparacaine HCl (Proparacaine 0.5% Ophth Luma) 1 drops EYE-BOTH NOW ONE Stop: 08/05/21 16:43 Last Admin: 08/05/21 17:10 Dose: 2 drop Documented by: JERMAN Timolol Maleate (Timolol 0.5% Ophth) 1 drops EYE-BOTH NOW ONE Stop: 08/05/21 18:25 Last Admin: 08/05/21 18:43 Dose: 1 drop Documented by: JERMAN Vital Signs Vital signs: Vital Signs - 8 hr 08/05/21 15:57 Temperature 98.0 F Pulse Rate 95 H Respiratory Rate 14 Blood Pressure 143/99 H Pulse Oximetry 97 <Cornelio Moore DO - Last Filed: 08/08/21 08:44> Orders Ordered: Discontinued Medications Brimonidine Tartrate (Brimonidine 0.2% Ophth 5 Ml) 1 drops EYE-BOTH NOW ONE Stop: 08/05/21 18:23 Last Admin: 08/05/21 18:41 Dose: 1 drops Documented by: JERMAN Fluorescein Sodium (Fluorescein 1 Mg Strip) 1 mg EYE-BOTH NOW ONE Stop: 08/05/21 16:43 Last Admin: 08/05/21 17:09 Dose: 1 mg Documented by: JERMAN Fluorescein Sodium (Fluorescein 1 Mg Strip) 1 mg EYE-RIGHT NOW ONE Stop: 08/05/21 16:42 Last Admin: 08/05/21 17:10 Dose: Not Given Documented by: JERMAN Proparacaine HCl (Proparacaine 0.5% Ophth Ulma) 1 drops EYE-BOTH NOW ONE Stop: 08/05/21 16:43 Last Admin: 08/05/21 17:10 Dose: 2 drop Documented by: JERMAN Timolol Maleate (Timolol 0.5% Ophth) 1 drops EYE-BOTH NOW ONE Stop: 08/05/21 18:25 Last Admin: 08/05/21 18:43 Dose: 1 drop Documented by: JERMAN Vital Signs Vital signs: Vital Signs - 8 hr 08/05/21 15:57 Temperature 98.0 F Pulse Rate 95 H Respiratory Rate 14 Blood Pressure 143/99 H Pulse Oximetry 97 MDM - Eye Problem <Josette Skaggs PA-C - Last Filed: 08/05/21 19:21> Lab Data Labs: Lab Results 08/05/21 Range/Units 19:08 SARS-CoV-2 (PCR) Negative (Negative) MDM Narrative Medical decision making narrative: 50-year-old female with no reported past medical history presents to the ED with 2 days of right eye vision deficits, floaters, eye pain. Concern for glaucoma versus retinal detachment versus vitreous hemorrhage. Will obtain IOP, ultrasound. Will reassess. Will consult Ophthalmology. <Cornelio Moore DO - Last Filed: 08/08/21 08:44> Lab Data Labs: Lab Results 08/05/21 Range/Units 19:08 SARS-CoV-2 (PCR) Negative (Negative) Discharge Plan Departure Patient Disposition: [facility] Clinical Impression: Glaucoma Qualifiers: Glaucoma type: unspecified Laterality: right Qualified Code(s): H40.9 - Unspecified glaucoma Prescriptions: No Action nifedipine 30 mg tablet extended release 24hr RF: 0 acetaminophen 650 mg suppository RF: 0 spironolactone 25 mg tablet 1 tab PO DAILY RF: 0 ondansetron 8 mg tablet,disintegrating RF: 0 esomeprazole magnesium 40 mg capsule,delayed release(DR/EC) RF: 0 ibuprofen 400 mg tablet RF: 0 gabapentin 300 mg capsule RF: 0 nitroglycerin [Nitro-Bid] 2 % ointment RF: 0 folic acid 1 mg tablet RF: 0 amoxicillin-pot clavulanate 875-125 mg tablet 1 tab PO BID RF: 0 buspirone 15 mg tablet RF: 0 cyclobenzaprine 5 mg tablet RF: 0 rosuvastatin [Crestor] 5 mg tablet 1 tab PO DAILY RF: 0 duloxetine 30 mg capsule,delayed release(DR/EC) RF: 0 sildenafil (pulm.hypertension) 20 mg tablet RF: 0 tocilizumab [Actemra] 162 mg/0.9 mL syringe RF: 0 Referrals: Tatiana Tomas MD [Primary Care Provider] - <Cornelio Moore DO - Last Filed: 08/08/21 08:44> Cosign ED Attending Cosignature Attestation: I was immediately available in the department for consultation. This documentation has been reviewed and I agree with assessment and plan. Supervised by Cornelio Moore, DO
[2021-08-05] MEDS: BRIMONIDINE 0.2% OPHTH 5 ML 1 DROPS EYE-BOTH (18:41)
[2021-08-05] MEDS: TIMOLOL 0.5% OPHTH 1 DROPS EYE-BOTH (18:43)
[2021-08-05 19:37] LABS: COVID19 -Nasal RAPID Negative (Negative)
[2021-08-05 19:50] VITALS: BP 151/108; PULSE 87; RESP 18; O2SAT 96
== END 2021-08-05 19:51 | disposition short-term general hospital (02) ==
PROVIDERS: Emergency Provider Student in an Organized Health Care Education/Training Program; PCP Internal Medicine
DX: H40.9 Unspecified glaucoma (principal); Z20.822 Contact with and (suspected) exposure to COVID-19
CPT/HCPCS: 87635; 99282; 99283; C9803